=== PATIENT | female | born 1980 | race Caucasian/White ===

== ENCOUNTER → 2016-11-13 | Outpatient (CLI) | payer OTHER ==
--- NOTE | 2016-11-13 11:46 | KCIC ---
PROCEDURE Bilateral digital screening mammogram. HISTORY 36-year-old female with a family history of breast cancer presents for a baseline mammogram. TECHNIQUE Full field digital craniocaudal and mediolateral oblique views of both breasts are obtained. Computer-aided detection is applied. COMPARISON None. FINDINGS Breast parenchymal composition: Level B - Scattered fibroglandular densities. There is density within the posterior right breast on the mediolateral oblique view along the chest wall, likely an axillary tail lymph node. There is no suspicious mass, calcification or architectural distortion with either breast. IMPRESSION Bi-RADS Category 2: Benign findings. Annual mammography is recommneded Mammography is not 100% sensitive in detecting breast cancer. Therefore, a self breast exam and a clinical breast exam are very important. A negative mammogram does not negate a clinically suspicious finding and should not result in a delay in biopsying a clinically suspicious abnormality. This patient's information has been entered into a reminder system for the patient to be notified with the results of this examination and a target date for her next mammograms. Electronically signed by: Hyacinth Cruz (Nov 13, 2016 11:45:14)
== END | disposition home or self-care (01) ==
LOC: KCIC MAMMO 10:54
PROVIDERS: ATTEND Family Medicine
DX: Z12.31 Encounter for screening mammogram for malignant neoplasm of breast (principal); Z85.3 Personal history of malignant neoplasm of breast
CPT/HCPCS: G0202; 77067